=== PATIENT | female | born 1995 | race Two or more races ===

== ENCOUNTER 2023-09-16 05:23 | Inpatient (IN) | payer MEDICAID, OTHER ==
[~2023-09-16] VITALS: Ht 162.6 cm; Wt 81.0 kg
[2023-09-16 06:56] LABS: Basophils # (auto) 0 10 ^3/uL (0-0.2); Basophils % (auto) 0.3 % (0.0-2.0); Eosinophils # (auto) 0.1 10 ^3/uL (0-0.8); Eosinophils % (auto) 0.9 % (0.0-7.0); Hematocrit 33.7 % (36.0-46.0); Lymphocytes # (auto) 1.4 10 ^3/uL (0.4-5.4); Lymphocytes % (auto) 20.1 % (10.0-50.0); Mean Corpuscular Hemoglobin 28.4 pg (28.0-32.0); Mean Corpuscular Hgb Conc. 32.7 g/dL (32.0-36.0); Monocytes # (auto) 0.4 10 ^3/uL (0-1.3); Monocytes % (auto) 6.6 % (0.0-12.0); Neutrophils # (auto) 4.9 10 ^3/uL (1.6-8.6); Neutrophils % (auto) 72.1 % (37.0-80.0); Red Blood Cells 3.88 10^6/uL (4.0-5.20); Red Cell Distribution Width 13.9 % (11.8-14.3); White Blood Cell 6.7 10^3/uL (4.4-10.8)
[2023-09-16 06:59] LABS: Urine Bacteria None Seen /hpf (None Seen)
[2023-09-16 07:03] LABS: Alanine Aminotransferase 17 U/L (7-40); Albumin 4.1 g/dL (3.2-4.8); Alkaline Phosphatase 112 U/L (46-116); Anion Gap 9 (5-15); Aspartate Aminotransferase 14 U/L (13-40); BUN/Creatinine Ratio 14.1 (10.0-20.0); Bilirubin, Total 0.4 mg/dL (0.2-1.0); Blood Urea Nitrogen 9 mg/dL (9-23); Calcium 9.3 mg/dL (8.5-10.1); Carbon Dioxide 22 mmol/L (20-30); Chloride 108 mmol/L (98-107); Glucose 97 mg/dL (74-106); Potassium 3.5 mmol/L (3.5-5.1); Sodium 139 mmol/L (136-145); Total Protein 6.6 g/dL (5.7-8.2)
[2023-09-16 07:27] LABS: Urine Blood Negative /uL (Negative); Urine Clarity Turbid (Clear); Urine Color Yellow (Yellow); Urine Mucus FEW (None Seen); Urine Protein, UAD TRACE (Negative); Urine Specific Gravity 1.036 (1.001-1.035); Urine Urobilinogen Normal (Negative); Urine WBC 4 /hpf (0 - 5); Urine pH 5.5 (5.0-9.0)
[2023-09-16] MEDS: MAALOX PLUS or MAALOX 30 ML PO ONE (07:55)
[2023-09-16] MEDS: DONNATAL 5ml ORAL Elix (BELLADONNA ALK-PHENOBARB) PO ONE (07:56)
[2023-09-16] MEDS: LIDOCAINE VISCOUS 2% 15ML UD PO ONE (07:56)
[2023-09-16 08:02] LABS: Lipase 64 U/L (12-53)
[2023-09-16 09:00] VITALS: PULSE 61; RESP 18; O2SAT 97
[2023-09-16 09:14] LABS: Bilirubin, Total 0.4 mg/dL (0.2-1.0)
[2023-09-16 09:48] VITALS: TEMP 97.7
[2023-09-16] MEDS ORDERED: LEVO50TA7 PO (09:52)
[2023-09-16] MEDS ORDERED: DICYCLOMINE HCL 10 MG CAP PO PRN (10:00)
[2023-09-16] MEDS ORDERED: MORPHINE SULFATE INJ 2 MG/ml SYRG IV PRN ×2 (10:00)
[2023-09-16] MEDS ORDERED: HYDROcodone-ACET 5/325MG TAB PO PRN (10:00)
[2023-09-16] MEDS ORDERED: ACETAMINOPHEN 325 MG TAB PO PRN (10:00)
[2023-09-16] MEDS ORDERED: NITROGLYCERIN 0.4 MG SL TAB SL PRN (10:00)
[2023-09-16] MEDS ORDERED: DOCUSATE SOD 100 MG CAP PO PRN (10:00)
[2023-09-16] MEDS ORDERED: ONDANSETRON HCL 4 MG/2 ML VIAL IV PRN (10:00)
[2023-09-16] MEDS: SODIUM CHLORIDE 0.9% 1,000 ML IV ONE (10:34)
[2023-09-16 13:56] VITALS: BP 108/58; PULSE 63; RESP 16; O2SAT 98
[2023-09-17] MEDS ORDERED: PANTOPRAZOLE 40 MG TAB PO SCH (06:00)
[2023-09-17] MEDS ORDERED: LEVOTHYROXINE SODIUM 50 MCG TAB PO SCH (07:00)
== END 2023-09-16 14:04 | disposition left against medical advice (07) | DRG 241 ==
LOC: ER 05:23 → OVERFLOW 09:52
PROVIDERS: ADMIT Nurse Practitioner Family; ATTEND Nurse Practitioner Family
DX: K29.00 Acute gastritis without bleeding (principal); E03.9 Hypothyroidism, unspecified; Z53.29 Procedure and treatment not carried out because of patient's decision for other reasons; K21.9 Gastro-esophageal reflux disease without esophagitis; Z98.84 Bariatric surgery status; Z79.899 Other long term (current) drug therapy
CPT/HCPCS: 36415; 74176; 80053; 81001; 82247; 83690; 84450; 84460; 84702; 85025; G0378